=== PATIENT | male | born 1965 | race Caucasian/White ===

== ENCOUNTER 2023-01-24 15:05 | Outpatient (CLI) | payer OTHER, SELFPAY ==
--- NOTE | ~2023-01-24 | XR_ITS ---
EXAM: XR knee LT 3V DATE: 01/24/2023 15:25 HISTORY: M25.562 - Pain in left knee . COMPARISON: 02/16/2019. FINDINGS: Normal mineralization. No fracture or dislocation. No lytic or blastic lesion. Tricompartm ental osteophytosis, moderate in the medial compartment. Moderate medial and mild lateral joint space narrowing. No erosion or periosteal change. Soft tissues within normal limits. IMPRESSION: Tricompartmental left knee osteoarthritis, moderate in the medial compartment. Reviewed, dictated and finalized at location K. AGING TECHNICIAN IMPRESSION: Tricompartmental left knee osteoarthritis, moderate in the medial c ompartment.
== END 2023-01-24 15:06 | disposition home or self-care (01) ==
PROVIDERS: PCP Family Medicine; Visit Provider Family Medicine
DX: M17.12 Unilateral primary osteoarthritis, left knee (principal)
CPT/HCPCS: 73562

== ENCOUNTER 2024-12-02 19:10 | Emergency (ER) | payer OTHER, SELFPAY ==
[2024-12-02 19:21] VITALS: BP 152/91; PULSE 83; RESP 16; TEMP 36.6; O2SAT 100
--- NOTE | 2024-12-02 19:30 | ED.WOUNDLAC ---
HPI - Wound/Laceration General Chief Complaint: Wound/Laceration Stated Complaint: Laceration to the Head Time Seen by Provider: 12/02/24 19:30 Source: patient and RN notes reviewed Mode of arrival: ambulatory Limitations: no limitations History of Present Illness HPI narrative: 59-year-old male presents with concern for laceration to his scalp. Reports prior to arrival he hit his head on the top of the tractor cab. He denies loss of consciousness. Denies headache. Denies vomiting Related Data Home Medications ?Medication ?Instructions ?Recorded ?Confirmed ?Last Taken ?Type No Home Medications 01/29/19 02/22/24 Unknown History Allergies Allergy/AdvReac Type Severity Reaction Status Date / Time No Known Allergies Allergy Verified 12/02/24 19:21 Review of Systems Review of Systems: CONSTITUTIONAL: Denies malaise, chills, sweats, or fever. SKIN: Reports laceration to the scalp MUSCULOSKELETAL: Denies muscle skeletal pain NEUROLOGIC: Denies numbness, weakness All systems reviewed & are unremarkable except as noted in HPI and below PMFSH Past Medical History Medical History HLD (hyperlipidemia) Surgical History Surgical History History of pyloric stenosis as a child Family History Family History Mother Brain cancer Father Heart disease Social History Social History Smoking status: Never smoker Second hand tobacco smoke exposure: No Alcohol intake: current Drinks per week: 2 Alcohol use details: rare Substance use: never Substance use type: does not use Living arrangements: with family Occupation/Education: occupation Gender identity (if verbalized by the patient): Male Sexual Orientation (if Verbalized by the Patient): Straight or Heterosexual Spiritual care concerns: No Comments At time of signature, agree with nursing past medical, surgical, social and family history. There is no relevant family history pertinent to the presenting complaint Exam Narrative: GENERAL: Well-appearing, well-nourished, and in no acute distress. HEAD: Normocephalic, atraumatic. EYES: PERRLA, conjunctivae clear, and EOMI. ENT: Mucous membranes moist. NECK: Supple. No lymphadenopathy CHEST: Clear to auscultation. No respiratory distress. HEART: Regular rate and rhythm. SKIN: Warm, dry. 5 cm L-shaped laceration in to the subcutaneous tissue noted to the scalp NEURO: Alert and oriented x3. PSYCH: Normal mood and affect Course Course Emergency Course: Patient is aware of diagnosis, understands and agrees to treatment plan. Anticipatory guidance given. Patient agrees to follow-up as directed and is aware of reasons to seek care at the emergency department. Portions of this record may have been created with voice recognition software Level of Care: Express Care Visit Vital Signs Vital signs: Vital Signs Temperature 98 F 12/02/24 19:21 Pulse Rate 83 12/02/24 19:21 Respiratory Rate 16 12/02/24 19:21 Blood Pressure 152/91 H 12/02/24 19:21 Pulse Oximetry 100 12/02/24 19:21 Oxygen Delivery Room Air 12/02/24 19:21 Temperature 98 F 12/02/24 19:21 Pulse Rate 83 12/02/24 19:21 Respiratory Rate 16 12/02/24 19:21 Blood Pressure 152/91 H 12/02/24 19:21 Pulse Oximetry 100 12/02/24 19:21 Oxygen Delivery Room Air 12/02/24 19:21 Reviewed. Procedures Laceration Laceration 1: Date: 12/02/24 Time: 19:33 Site: scalp Side (If applicable): left Size (cm): 5 Description: other (L-shaped) Depth: simple, single layer Pre-repair: irrigated ====== Skin Level ====== Skin layer closed with: mckay Number of sutures: 11 ====== Subcutaneous Layer ====== ====== Muscle Layer ====== ====== Tendon Layer ====== MDM - Wound/Laceration MDM Narrative Medical decision making narrative: Wound explored for foreign body and copious irrigation provided with no evidence of FB. Discussed the potential of retained foreign body with the patient and signs/symptoms that should prompt the patient to immediately go to the ED for reevaluation. The laceration was identified to be [XXX] cm in length and located at [XXX]. The laceration was cleansed with [XXX] and no debris was noted. Local anesthesia was obtained by injecting 1% lidocaine at the laceration site. The laceration was then irrigated with 500cc of high-pressure irrigation. The wound was explored and no foreign bodies were found. There was no evidence of tendon or nerve lacerations. The wound was closed with [ XXX suture type, number, and technique]. A sterile dressing was then applied and anticipatory guidance was provided. Tetanus prophylaxis [(was/was not)] given Differential Diagnosis Differential diagnosis: Likely laceration, abrasion and avulsion of skin Critical Care Time Critical Care Time Critical Care Time: No Discharge Plan Discharge Clinical Impression: Laceration Patient Disposition: Home Condition: Stable Instructions: Staple Care (ED), Head Laceration (ED) Additional Instructions: Keep wound clean, and dry. Apply antibiotic ointment twice daily. Clean with soap and water twice daily, but do not soak, take baths, or swim until wound is completely healed. Do not clean with hydrogen peroxide. If any signs of infection such as redness, swelling, increasing pain, drainage of purulent discharge, streaks up your extremity develop, seek medical attention immediately. Followup with your primary care provider in 7 days for suture removal. Patient Language: Citizen Of [place] Prescriptions: No Action No Home Medications Follow-up/Referrals: Kunal Snow MD [Primary Care Provider, [facility]] Time of Disposition: 19:34
== END 2024-12-02 19:51 | disposition home or self-care (01) ==
PROVIDERS: Emergency Provider Nurse Practitioner; PCP Family Medicine
DX: S01.01XA Laceration without foreign body of scalp, initial encounter (principal); W22.8XXA Striking against or struck by other objects, initial encounter; E78.5 Hyperlipidemia, unspecified
CPT/HCPCS: 12002; 99212; G0463

== ENCOUNTER 2024-12-10 13:58 | Emergency (ER) | payer OTHER, SELFPAY ==
[2024-12-10 14:01] VITALS: BP 163/93; PULSE 62; RESP 16; TEMP 36.7; O2SAT 99
--- NOTE | 2024-12-10 14:59 | ED.GENADULT ---
HPI - General Adult General Chief complaint: Wound/Laceration Stated complaint: remove mckay Source: patient Mode of arrival: ambulatory Limitations: no limitations History of Present Illness HPI narrative: Patient presents to have mckay removed from his scalp. He was evaluated here on 12/02/2024 after he had his head on the top of his tractor cab. He had 11 mckay placed at that time. He denies any fever, redness around the laceration site or purulent drainage. He denies any considerable pain. He denies any other concerns. Related Data Home Medications ?Medication ?Instructions ?Recorded ?Confirmed ?Last Taken ?Type No Home Medications 01/29/19 02/22/24 Unknown History Allergies Allergy/AdvReac Type Severity Reaction Status Date / Time No Known Allergies Allergy Verified 12/10/24 14:03 Review of Systems Review of Systems: CONSTITUTIONAL: Denies fever, chills, or sweats. EYES: Denies visual changes, redness, or discharge. ENT: Denies rhinorrhea, congestion, sore throat, or otalgia. CARDIOVASCULAR: Denies chest pain, palpitations, or edema. RESPIRATORY: Denies cough or dyspnea. GASTROINTESTINAL: Denies abdominal pain, nausea, vomiting, or diarrhea. GENITOURINARY: Denies dysuria or hematuria. SKIN: Reports healing laceration to the left side of his scalp MUSCULOSKELETAL: Denies back pain, joint pain, or myalgia. NEUROLOGIC: Denies headache, numbness, dizziness, or weakness. PSYCHIATRIC: Denies anxiety or depression. [facility] Past Medical History Medical History HLD (hyperlipidemia) Surgical History Surgical History History of pyloric stenosis as a child Family History Family History Mother Brain cancer Father Heart disease Social History Social History Smoking status: Never smoker Second hand tobacco smoke exposure: No Alcohol intake: current Drinks per week: 2 Alcohol use details: rare Substance use: never Substance use type: does not use Living arrangements: with family Occupation/Education: occupation Gender identity (if verbalized by the patient): Male Sexual Orientation (if Verbalized by the Patient): Straight or Heterosexual Spiritual care concerns: No Exam Narrative: GENERAL: Well-appearing, well-nourished, and in no acute distress. HEAD: Normocephalic EYES: PERRLA and EOMI. ENT: Nares clear, no rhinorrhea or epistaxis. Mucous membranes moist. Oropharynx without tonsillar hypertrophy exudate or other lesions. Bilateral TMs pearly cisse nonbulging NECK: Supple. No adenopathy or masses. No carotid bruits or JVD CHEST: Clear to auscultation. No respiratory distress. No wheezes rales or rhonchi HEART: Regular rate and rhythm. No murmur heard. Normal peripheral pulses. ABDOMEN: Soft, nontender, nondistended, normal active bowel sounds. EXTREMITIES: Normal range of motion. No edema. SKIN: There is an approximately 4 cm healing laceration to the left parietal region of his scalp that is approximated with ten mckay. There is some dried serosanguinous drainage present without purulence. NEURO: No focal deficits. Alert and oriented x3. PSYCH: Normal mood and affect. Course Course Emergency Course: This is a 59-year-old male who presented for evaluation of staple removal. Ten mckay from were visualized and removed. I did not appreciate presence of an eleventh staple that was noted at the time of his procedure on 12/02. I did clean the area with hydrogen peroxide to clear some of the drainage to ensure it was not embedded within the drainage. I did not visualize after doing so. He will follow up with his primary care provider and go to the ER if he has signs of infection. Patient in agreement with plan care. Level of Care: Express Care Visit Vital Signs Vital signs: Vital Signs Temperature 36.7 C 12/10/24 14:01 Pulse Rate 62 12/10/24 14:01 Respiratory Rate 16 12/10/24 14:01 Blood Pressure 163/93 H 12/10/24 14:01 Pulse Oximetry 99 12/10/24 14:01 Oxygen Delivery Room Air 12/10/24 14:01 Temperature 36.7 C 12/10/24 14:01 Pulse Rate 62 12/10/24 14:01 Respiratory Rate 16 12/10/24 14:01 Blood Pressure 163/93 H 12/10/24 14:01 Pulse Oximetry 99 12/10/24 14:01 Oxygen Delivery Room Air 12/10/24 14:01 Medical Decision Making Vital Signs Vital Signs: Vital Signs Temperature 36.7 C 12/10/24 14:01 Pulse Rate 62 12/10/24 14:01 Respiratory Rate 16 12/10/24 14:01 Blood Pressure 163/93 H 12/10/24 14:01 Pulse Oximetry 99 12/10/24 14:01 Oxygen Delivery Room Air 12/10/24 14:01 Temperature 36.7 C 12/10/24 14:01 Pulse Rate 62 12/10/24 14:01 Respiratory Rate 16 12/10/24 14:01 Blood Pressure 163/93 H 12/10/24 14:01 Pulse Oximetry 99 12/10/24 14:01 Oxygen Delivery Room Air 12/10/24 14:01 Discharge Plan Discharge Clinical Impression: Laceration of scalp Patient Disposition: Home Condition: Stable Instructions: Antibiotic Form, Laceration (DC), Staple Care (ED) Patient Language: [place]ic Prescriptions: No Action No Home Medications Follow-up/Referrals: Kunal Snow MD [Primary Care Provider, Family Practice] Time of Disposition: 14:35
== END 2024-12-10 14:39 | disposition home or self-care (01) ==
PROVIDERS: Emergency Provider Nurse Practitioner; PCP Family Medicine
DX: Z48.02 Encounter for removal of sutures (principal)
CPT/HCPCS: 99211; G0463